=== PATIENT | male | born 1960 | race Caucasian/White ===

== ENCOUNTER → 2017-11-27 | Outpatient (CLI) | payer BC ==
--- NOTE | 2017-11-28 10:52 | PCVCIMAG ---
APPROVED REPORT Study performed: 11/27/2017 16:44:03 Exam: Stress Echocardiogram Indication: Hypertension, Hyperlipidemia, Elevated CA Score Patient Location: Echo lab Stress Nurse: Sol Marin RN Status: routine Ht: 6 ft 0 in HR: 61 bpm BP: 118/70 mmHg Rhythm: NSR Procedure The patient underwent an Exercise Stress Test using the Kamran Protocol. Blood pressure, heart rate, and EKG were monitored. An Echocardiogram was performed by swimming pool service technician in four stages in quad fashion. At peak stress, four selected images were obtained and placed side by side with resting images for comparison. Stress Test Details Stress Test: Exercise stress testing was performed using a Kamran protocol. HR Resting HR: 61 bpmMax Heart Rate (APMHR): 165 bpm Max HR Achieved: 148 bpmTarget HR (85% APMHR): 140 bpm % of APMHR: 89 Recovery HR: 85 bpm HR response to stress: Normal HR response to stress BP Resting BP: 118/70 mmHg Max BP: 180/68 mmHg Recovery BP: 140/80 mmHg ECG Resting ECG: Sinus Rhythm Stress ECG: Sinus Rhythm Recovery ECG: Sinus Rhythm Clinical Reason for Termination: Maximal effort Exercise duration: 11 min 27 sec Highest Stage Achieved: Stage 4: 4.2 mph at 16% grade. Exercise capacity: 13.370 METs Overall Exercise Capacity for Age: Good Stress ECG Conclusion 1. Subjectively negative for ischemia 2. Elective cardiographic C negative for ischemia 8. Satisfactory functional capacity Pre-Stress Echo The resting Echocardiogram showed normal left ventricular contractility with an estimated Ejection Fraction of about >55%. Normal wall motion in all segments on baseline images. Post-Stress Echo The stress Echocardiogram showed normal left ventricular contractility with an estimated Ejection Fraction of about 60-65%. Normal augmentation of wall motion in all segments on post stress images. Clinical No clinical or ECG evidence for ischemia. Conclusion Clinical Response: Non-ischemic Exercise Capacity: Superior Stress ECG Response: Non-ischemic Stress Echo Images: Non-ischemic The left ventricle is normal in size and wall thickness in both the rest and stress images. 1. Low risk study Other Information Study Quality: Adequate <Conclusion> The left ventricle is normal in size and wall thickness in both the rest and stress images. 1. Low risk study
== END | disposition home or self-care (01) ==
LOC: PCVCIMAG 16:32
PROVIDERS: ATTEND Internal Medicine
DX: I10 Essential (primary) hypertension (principal); R93.1 Abnormal findings on diagnostic imaging of heart and coronary circulation
CPT/HCPCS: 93325; 93351